=== PATIENT | male | born 1990 | race Caucasian/White ===

== ENCOUNTER 2021-06-20 09:51 | Inpatient (IN) | payer OTHER, SELFPAY ==
--- NOTE | ~2021-06-20 | XR_ITS ---
EXAMINATION: XR CHEST CLINICAL INFORMATION: Hypoxia, shortness of breath COMPARISON: None TECHNIQUE: Frontal view of the chest was obtained. FINDINGS: Normal cardiac and mediastinal silhouette. Multifocal airspace opacities in bilateral mid and lower lungs. This could reflect infectious or inflammatory process. Question trace left pleural effusion. No pulmonary edema or pneumothorax.. XR/XR chest 1V IMPRESSION: Multifocal airspace opacities in bilateral mid to lower lungs, could reflect infectious or inflammatory process. Recommendation is for a follow-up chest series to be obtained following treatment and/or resolution of symptoms to assure resolution of this appearance.
[2021-06-20 10:00] VITALS: BP 125/84; PULSE 109; RESP 20; TEMP 38.2; O2SAT 90; BMI 30.9
--- NOTE | 2021-06-20 10:09 | ECG_ITS ---
Test Reason : UPPER RESPIRATORY Blood Pressure : / mmHG Vent. Rate : 120 BPM Atrial Rate : 120 BPM P-R Int : 154 ms QRS Dur : 114 ms QT Int : 304 ms P-R-T Axes : 050 039 019 degrees QTc Int : 429 ms Sinus tachycardia Nonspecific T wave abnormality Abnormal ECG No previous ECGs available Referred By: Meghan Stern Electronically Signed By:AURA FLORES
--- NOTE | 2021-06-20 10:13 | ED.URI ---
HPI - URI/Sore Throat General Chief Complaint: Upper Respiratory Symptoms Stated Complaint: LOW O2 Time Seen by Provider: 06/20/21 09:54 Source: patient and family Mode of arrival: ambulatory Limitations: no limitations History of Present Illness HPI Narrative: 31-year-old male with a past medical history of asthma, developmental delay here with complaints of hypoxia. Patient has had viral symptoms since Sunday. Family at home is COVID positive. He had a COVID test on Monday 06/18 which was positive. Mom has been watching his oxygen saturations at home and has noticed his oxygen has been 89-90% today. She trialed his albuterol nebulizer at home with continued hypoxia. The patient has had cough, chest discomfort, body aches, fever up to 101. No history of hospitalizations for asthma. No intubation history No leg swelling or pain. No vomiting or diarrhea. Related Data Home Medications Medication Instructions Recorded Confirmed albuterol sulfate 1 vial INHALATION Q6H PRN 06/20/21 06/20/21 loratadine 10 mg tablet (Claritin) 10 mg PO DAILY 06/20/21 06/20/21 montelukast 10 mg tablet 10 mg PO BEDTIME 06/20/21 06/20/21 (Singulair) triamcinolone acetonide 55 mcg 2 spray INTRANASAL DAILY 06/20/21 06/20/21 nasal spray aerosol (Nasacort) Allergies Allergy/AdvReac Type Severity Reaction Status Date / Time carrot Allergy Mild unknown Verified 06/20/21 10:38 codeine Allergy Mild cough Verified 06/20/21 10:38 corn Allergy Mild unknown Verified 06/20/21 10:38 peanut Allergy Mild unknown Verified 06/20/21 10:38 peas Allergy Mild unknown Verified 06/20/21 10:38 tuna oil Allergy Mild unknown Verified 06/20/21 10:38 Review of Systems Review of Systems: Yes all other systems are reviewed and are negative Constitutional: Constitutional: Reports no additional constitutional complaints, Reports body ache(s), Denies chills, Reports fever(s), Denies headache(s) and Denies weakness Eyes: Eyes: Reports no additional eye complaints and Denies change in vision ENT: Reports system reviewed and no additional complaints, except as documented, Denies dizziness, Denies headache(s), Denies nasal congestion, Denies nasal discharge and Denies neck pain Cardiovascular: Cardiovascular: Reports no additional cardiovascular complaints, Reports chest pain (Chest tightness), Denies leg edema and Denies dyspnea Respiratory: Respiratory: Reports no additional respiratory complaints, Reports cough, Denies dyspnea and Reports wheezing Gastrointestinal: Gastrointestinal: Reports no additional gastrointestinal complaints, Denies abdominal pain, Denies diarrhea, Denies nausea and Denies vomiting Genitourinary: Genitourinary: Denies urinary incontinence Musculoskeletal: Musculoskeletal: Reports no additional musculoskeletal complaints, Denies back pain, Denies arthralgias, Denies joint swelling, Denies neck pain, Denies numbness and Denies tingling Integumentary/Breasts: Skin/Breast: Reports system reviewed and no additional complaints, except as docu and Denies rash Neurologic: Denies Abnormal speech present, Denies dizziness, Denies headache(s), Denies numbness, Denies tingling and Denies weakness Allergic/Immunologic: Allergic/Immunologic: Reports wheezing PMFSH Past Medical History Attestation statement: The following information was validated with the patient. Source: old records reviewed and nursing notes reviewed Medical History Asthma Developmental delay, mild Social History Social History Alcohol intake: never Patient Tobacco Use Status: Never used Tobacco Use of substances other than those prescribed or required for medical reasons: No Advance Directives: No Advance Directives Information Provided: No Physical Exam Vital Signs: Vital Signs: Last Vital Signs Temp 100.8 F H 06/20/21 10:00 Pulse 138 H 06/20/21 12:00 Resp 28 H 06/20/21 12:00 BP 125/84 06/20/21 10:00 Pulse Ox 89 L 06/20/21 12:00 Body Mass Index 30.9 Const: General: cooperative, healthy appearing, comfortable and no acute distress Orientation/consciousness: patient oriented x3 Limitations: no limitations HENMT: Head: Yes normal to inspection Ears: hearing grossly normal bilaterally General nose exam: Normal external nose present Face and sinus: Yes normal facial exam Mouth: Normal oral and palatal mucosa present Throat: Yes posterior oropharynx normal Eyes: General: appearance normal, both eyes and all related structures Pupils: Equal, round and reactive pupils present Neck: Neck: Yes normal visual inspection Chest: Chest palpation & inspection: normal inspection of the chest Resp: Effort & Inspection: normal respiratory effort Auscultation: clear to auscultation bilaterally Cardio: Rate: regular rate Rhythm: regular rhythm Peripheral pulses: Peripheral pulses 2+ throughout GI: Inspection: Yes normal to inspection Palpation (GI): Soft to palpation and nontender Auscultation: normal bowel sounds Back/Spine/Pelvis: Thoracic/Lumbar Spine: thoracic and lumbar spine normal to inspection Skin: General skin exam: no rashes or lesions noted Neuro: General: patient oriented x3, no focal motor deficits and normal sensation to monofilament Cranial nerves: Yes Equal, round and reactive pupils present Cognition (Neuro): normal cognition Speech: No Abnormal speech present Gait exam (Neuro): Normal gait present Motor exam (neuro): 5/5 motor strength present throughout Extrem: General: Yes normal to inspection, Yes no pedal edema and Yes no calf tenderness Course Course Course Narrative: 31-year-old male COVID positive here with hypoxia. Room air saturation 89%. Will need labs, chest x-ray, EKG.. Tachycardia, hypoxia secondary to viral infection. -Called and spoke to gavi Lerma who is guardian. 1242-x-ray is consistent with viral pneumonia. Patient sat on the side of the bed and his oxygen saturation desatted to 89% without any movement or exertion. Will require admission for supplemental oxygen. Mom was called and updated on plan of care. At this time infection is suspected. Antibiotics ordered. Spoke with Dr Sheridan who accepted admissionj. MDM - URI/Sore Throat MDM Narrative Medical decision making narrative: Pulmonary embolism, viral infection Medical Records Attestation: I reviewed the patient's medical records. Lab Data Attestation: I reviewed the patient's lab results. Result diagrams: 06/20/21 10:28 06/20/21 10:27 Labs: Lab Results 06/20/21 06/20/21 06/20/21 Range/Units 10:27 10:27 10:27 WBC (4.8-10.8) X10*3/uL RBC (4.60-5.80) X10*6/uL Hgb (14.0-18.0) g/dl Hct (42-52) % MCV (80-98) fL MCH (27.0-33.0) pg MCHC (31.0-36.0) g/dl RDW (11.0-16.0) % Plt Count (160-400) X10*3/uL MPV (9.4-12.4) fL Immature Gran % (Auto) (0.0-0.4) % Neut % (Auto) (45-73) % Lymph % (Auto) (20-40) % Garfield % (Auto) (2-11) % Eos % (Auto) (0-4) % Baso % (Auto) (0-2) % Lymph # (Auto) (1.2-4.9) X10*3/uL [place]field # (Auto) (0.1-1.2) X10*3/uL Eos # (Auto) (0.0-0.4) X10*3/uL Baso # (Auto) (0.0-0.2) X10*3/uL Abs Immat Gran (auto) (0.00-0.03) X10*3/uL Absolute Neuts (auto) (2.0-8.3) X10*3/uL Absolute Nucleated RBC (0.0-0.012) X10*3/uL Nucleated RBC % (auto) (0.0-0.2) /100WBC PT 13.6 H (9.9-13.0) SEC INR 1.2 H (0.9-1.1) D-Dimer NG/ML Sodium 139 (135-145) mmol/L Potassium 4.5 (3.3-5.1) mmol/L Chloride 103 (96-108) mmol/L Carbon Dioxide 25 (22-29) mmol/L Anion Gap 16 (12-20) BUN 14 (9-16) mg/dL Creatinine 0.83 (0.5-1.4) mg/dL Estim Creat Clear Calc 146.6 Estimated GFR > 60 Random Glucose 88 (60-115) mg/dL Lactic Acid 1.0 (0.5-2.0) mmol/L Calcium 8.3 L (8.4-10.2) mg/dL Magnesium 2.1 (1.6-2.6) mg/dL Ferritin 592 H (20-250) ng/mL Total Bilirubin 0.4 (0.0-1.0) mg/dL Direct Bilirubin 0.2 (0.0-0.5) mg/dL AST 56 H (5-37) U/L ALT 78 H (0-40) U/L Alkaline Phosphatase 71 (39-117) U/L Lactate Dehydrogenase 292 H (118-273) U/L C-Reactive Protein 0.81 H (< or = 0.50) mg/dL Total Protein 6.2 L (6.5-8.0) g/dL Albumin 3.9 (3.5-5.0) g/dL Procalcitonin ng/mL COVID-19 (LORENZA) (Negative) COVID-19 Clin Com 06/20/21 06/20/21 06/20/21 Range/Units 10:27 10:27 10:27 WBC (4.8-10.8) X10*3/uL RBC (4.60-5.80) X10*6/uL Hgb (14.0-18.0) g/dl Hct (42-52) % MCV (80-98) fL MCH (27.0-33.0) pg MCHC (31.0-36.0) g/dl RDW (11.0-16.0) % Plt Count (160-400) X10*3/uL MPV (9.4-12.4) fL Immature Gran % (Auto) (0.0-0.4) % Neut % (Auto) (45-73) % Lymph % (Auto) (20-40) % Garfield % (Auto) (2-11) % Eos % (Auto) (0-4) % Baso % (Auto) (0-2) % Lymph # (Auto) (1.2-4.9) X10*3/uL [place]field # (Auto) (0.1-1.2) X10*3/uL Eos # (Auto) (0.0-0.4) X10*3/uL Baso # (Auto) (0.0-0.2) X10*3/uL Abs Immat Gran (auto) (0.00-0.03) X10*3/uL Absolute Neuts (auto) (2.0-8.3) X10*3/uL Absolute Nucleated RBC (0.0-0.012) X10*3/uL Nucleated RBC % (auto) (0.0-0.2) /100WBC PT (9.9-13.0) SEC INR (0.9-1.1) D-Dimer < 200 NG/ML Sodium (135-145) mmol/L Potassium (3.3-5.1) mmol/L Chloride (96-108) mmol/L Carbon Dioxide (22-29) mmol/L Anion Gap (12-20) BUN (9-16) mg/dL Creatinine (0.5-1.4) mg/dL Estim Creat Clear Calc Estimated GFR Random Glucose (60-115) mg/dL Lactic Acid (0.5-2.0) mmol/L Calcium (8.4-10.2) mg/dL Magnesium (1.6-2.6) mg/dL Ferritin Cancelled (20-250) ng/mL Total Bilirubin (0.0-1.0) mg/dL Direct Bilirubin (0.0-0.5) mg/dL AST (5-37) U/L ALT (0-40) U/L Alkaline Phosphatase (39-117) U/L Lactate Dehydrogenase Cancelled (118-273) U/L C-Reactive Protein (< or = 0.50) mg/dL Total Protein (6.5-8.0) g/dL Albumin (3.5-5.0) g/dL Procalcitonin 0.06 ng/mL COVID-19 (LORENZA) (Negative) COVID-19 Clin Com 06/20/21 06/20/21 Range/Units 10:28 13:54 WBC 5.7 (4.8-10.8) X10*3/uL RBC 5.26 (4.60-5.80) X10*6/uL Hgb 14.9 (14.0-18.0) g/dl Hct 45.4 (42-52) % MCV 86.3 (80-98) fL MCH 28.3 (27.0-33.0) pg MCHC 32.8 (31.0-36.0) g/dl RDW 12.2 (11.0-16.0) % Plt Count 163 (160-400) X10*3/uL MPV 9.7 (9.4-12.4) fL Immature Gran % (Auto) 0.5 H (0.0-0.4) % Neut % (Auto) 64.9 (45-73) % Lymph % (Auto) 23.7 (20-40) % Garfield % (Auto) 10.7 (2-11) % Eos % (Auto) 0.0 (0-4) % Baso % (Auto) 0.2 (0-2) % Lymph # (Auto) 1.4 (1.2-4.9) X10*3/uL Garfield # (Auto) 0.6 (0.1-1.2) X10*3/uL Eos # (Auto) 0.0 (0.0-0.4) X10*3/uL Baso # (Auto) 0.0 (0.0-0.2) X10*3/uL Abs Immat Gran (auto) 0.03 (0.00-0.03) X10*3/uL Absolute Neuts (auto) 3.7 (2.0-8.3) X10*3/uL Absolute Nucleated RBC 0.000 (0.0-0.012) X10*3/uL Nucleated RBC % (auto) 0.0 (0.0-0.2) /100WBC PT (9.9-13.0) SEC INR (0.9-1.1) D-Dimer NG/ML Sodium (135-145) mmol/L Potassium (3.3-5.1) mmol/L Chloride (96-108) mmol/L Carbon Dioxide (22-29) mmol/L Anion Gap (12-20) BUN (9-16) mg/dL Creatinine (0.5-1.4) mg/dL Estim Creat Clear Calc Estimated GFR Random Glucose (60-115) mg/dL Lactic Acid (0.5-2.0) mmol/L Calcium (8.4-10.2) mg/dL Magnesium (1.6-2.6) mg/dL Ferritin (20-250) ng/mL Total Bilirubin (0.0-1.0) mg/dL Direct Bilirubin (0.0-0.5) mg/dL AST (5-37) U/L ALT (0-40) U/L Alkaline Phosphatase (39-117) U/L Lactate Dehydrogenase (118-273) U/L C-Reactive Protein (< or = 0.50) mg/dL Total Protein (6.5-8.0) g/dL Albumin (3.5-5.0) g/dL Procalcitonin ng/mL COVID-19 (LORENZA) Positive A (Negative) COVID-19 Clin Com See Note ECG Data Attestation: I personally reviewed and interpreted this ECG as follows: ECG interpretation date: 06/20/21 ECG interpretation time: 10:48 Interpretation: Sinus tachycardia with a rate of 120, normal ME, normal QRS, normal QT Discharge Plan Discharge Clinical Impression: COVID-19, Hypoxia Patient Disposition: Admitted As Inpatient
[2021-06-20 10:21] VITALS: PULSE 120; O2SAT 92
[2021-06-20] MEDS: Albuterol/Iprat 2.5/0.5MG 3 ML AMPUL.NEB INHALE (10:21)
[2021-06-20 10:37] LABS: MANUAL DIFF FLAG NO
[2021-06-20 10:39] LABS: Basophils Percent Auto 0.2 % (0-2); Hematocrit 45.4 % (42-52); Hemoglobin 14.9 g/dl (14.0-18.0); Imm Gran Abs Auto 0.03 X10*3/uL (0.00-0.03); Imm Gran Pct Auto 0.5 % (0.0-0.4); Lymphocytes Absolute Auto 1.4 X10*3/uL (1.2-4.9); Lymphocytes Percent Auto 23.7 % (20-40); Mean Corpuscular HGB Conc 32.8 g/dl (31.0-36.0); Mean Corpuscular Hemoglobin 28.3 pg (27.0-33.0); Mean Corpuscular Volume 86.3 fL (80-98); Mean Platelet Volume 9.7 fL (9.4-12.4); Monocytes Absolute Auto 0.6 X10*3/uL (0.1-1.2); Monocytes Percent Auto 10.7 % (2-11); Neutrophils Absolute Auto 3.7 X10*3/uL (2.0-8.3); Neutrophils Percent Auto 64.9 % (45-73); Platelet Count 163 X10*3/uL (160-400); Red Blood Count 5.26 X10*6/uL (4.60-5.80); Red Cell Distribution Width 12.2 % (11.0-16.0); White Blood Count 5.7 X10*3/uL (4.8-10.8)
[2021-06-20] MEDS: dexAMETHasone sod phosphate 4 MG/ML VIAL 6 MG IVPUSH (10:43)
[2021-06-20] MEDS: 0.9 % Sodium Chloride 1,000 ML 999 ML IV ×2 (10:44→13:15)
[2021-06-20] MEDS: Magnesium Sulfate/H2O 2 GM/50 ML PIGGYBACK IV (10:44)
[2021-06-20 10:49] LABS: INTERNATIONAL NORM RATIO 1.2 (0.9-1.1); Prothrombin Time 13.6 SEC (9.9-13.0)
[2021-06-20 11:01] VITALS: O2SAT 96
[2021-06-20 11:05] LABS: Alanine Aminotransferase 78 U/L (0-40); Albumin Level 3.9 g/dL (3.5-5.0); Alkaline Phosphatase 71 U/L (39-117); Anion Gap 16 (12-20); Aspartate Amino Transferase 56 U/L (5-37); Bilirubin Direct 0.2 mg/dL (0.0-0.5); Bilirubin Total 0.4 mg/dL (0.0-1.0); Blood Urea Nitrogen 14 mg/dL (9-16); C Reactive Protein 0.81 mg/dL (< or = 0.50); Calcium 8.3 mg/dL (8.4-10.2); Carbon Dioxide 25 mmol/L (22-29); Chloride 103 mmol/L (96-108); Creatinine Clr Calc Pharmacy 146.6; Estimated Glomerular Filt Rate > 60; Glucose Random 88 mg/dL (60-115); Magnesium 2.1 mg/dL (1.6-2.6); Potassium 4.5 mmol/L (3.3-5.1); Sodium 139 mmol/L (135-145); Total Protein 6.2 g/dL (6.5-8.0)
[2021-06-20 11:08] LABS: D Dimer < 200 NG/ML
[2021-06-20 11:27] LABS: Ferritin 592 ng/mL (20-250); Lactate Dehydrogenase 292 U/L (118-273)
[2021-06-20 11:43] LABS: Procalcitonin 0.06 ng/mL
[2021-06-20 12:00] VITALS: PULSE 138; RESP 28; O2SAT 89
--- NOTE | 2021-06-20 12:01 | PC.NURSE ---
unable to tolerate ambulation w/o supp o2, desat to 89% on ra. placed back on nc in stretcher. plan for inpt admission.
--- NOTE | 2021-06-20 12:29 | PHA.MEDREC ---
Pharmacy Consult ? Medication Reconciliation Pharmacy has completed the medication reconciliation. Teetee HuynhD
[2021-06-20] MEDS: Piperacillin Sodium/Tazobactam 4.5 GM in 0.9 % Sodium Chloride 100 ML IV (13:15)
[2021-06-20 14:08] LABS: COVID-19 Test Positive (Negative)
--- NOTE | 2021-06-20 14:38 | P.HPHOSP_ITS ---
History of Present Illness Date of Service: 06/20/21 Chief Complaint: shortness of breath 31-year-old male with a developmental delay, history of asthma, who presents to the emergency room with a shortness of breath. He tested positive for covid on June 18 along with multiple family memebers and has been having symptoms of URI and sob since Jun 14 and seem to have gotten worse today and hence brought to the ED. His noted to be hypoxic with O2 892 on room. LFTs are high, CRP 0.81 LDH 292 and covid positive. Oxygen saturation is better with O2. ED:given brething treatment and IV dexamethasone. CXR shows covid pattern pneumonia. Review of Systems Review of Systems: Gen: no fever Resp: + sob, no cough CV: no chest, no RANDOLPH, no leg edema GI: No n/v, no abd pain Neuro: No confusion Yes all other systems are reviewed and are negative PMFSH Medical History Asthma Developmental delay, mild Social History Alcohol intake: never Patient Tobacco Use Status: Never used Tobacco Use of substances other than those prescribed or required for medical reasons: No Advance Directives: No Advance Directives Information Provided: No Meds Allergies Allergy/AdvReac Type Severity Reaction Status Date / Time carrot Allergy Mild unknown Verified 06/20/21 10:38 codeine Allergy Mild cough Verified 06/20/21 10:38 corn Allergy Mild unknown Verified 06/20/21 10:38 peanut Allergy Mild unknown Verified 06/20/21 10:38 peas Allergy Mild unknown Verified 06/20/21 10:38 tuna oil Allergy Mild unknown Verified 06/20/21 10:38 Active Medications: Current Medications Generic Name Dose Route Start Last Admin Trade Name Freq PRN Reason Stop Dose Admin Acetaminophen 650 mg 06/20/21 14:35 Acetaminophen 325 Mg Tablet PO Q6H PRN Pain, Mild (Pain Scale 1-3) Melatonin 6 mg 06/20/21 14:35 Melatonin 3 Mg Tablet PO BEDTIME PRN Insomnia Pharmacy Consult 1 each 06/20/21 11:57 Consult Rx Perform Med Rec MISCELLANE ONCE PRN Consult order Sodium Chloride 3 ml 06/20/21 16:00 0.9 % Sodium Chloride Flush 3 Ml Syringe IV[facility]USH [facility] Home Medications Medication Instructions Recorded Confirmed Last Taken Type albuterol sulfate 1 vial INHALATION Q6H PRN 06/20/21 06/20/21 06/20/21 History loratadine 10 mg tablet (Claritin) 10 mg PO DAILY 06/20/21 06/20/21 06/19/21 History montelukast 10 mg tablet 10 mg PO BEDTIME 06/20/21 06/20/21 06/19/21 History (Singulair) triamcinolone acetonide 55 mcg 2 spray INTRANASAL DAILY 06/20/21 06/20/21 06/20/21 History nasal spray aerosol (Nasacort) Physical Exam Vital Signs and Narrative: Vital Signs: Last Vital Signs Temp 100.8 F H 06/20/21 10:00 Pulse 138 H 06/20/21 12:00 Resp 28 H 06/20/21 12:00 BP 125/84 06/20/21 10:00 Pulse Ox 89 L 06/20/21 12:00 Body Mass Index 30.9 Constitutional Awake and Alert, No apparent distress HEENT anicteria Neck Supple, No lymphadenopathy Cardiovascular RRR, No M/R/G, S1 S2, No S3 S4, No pedal edema Respiratory normal resp effor, speaks in full sentences, auscultation avoided d'/t active covid status. Gastrointestinal Non tender, Non-distended Skin No rash Neurological Alert & oriented x3 Psychological Appropriate affect Results Labs CBC and Chem 7: 06/20/21 10:28 06/20/21 10:27 Labs: Laboratory Results - last 24 hr 06/20/21 06/20/21 06/20/21 10:27 10:27 10:27 MCV MCH MCHC RDW Plt Count MPV Immature Gran % (Auto) Neut % (Auto) Lymph % (Auto) [place] % (Auto) Eos % (Auto) Baso % (Auto) Lymph # (Auto) [place] # (Auto) Eos # (Auto) Baso # (Auto) Abs Immat Gran (auto) Absolute Neuts (auto) Absolute Nucleated RBC Nucleated RBC % (auto) PT 13.6 H INR 1.2 H D-Dimer Anion Gap 16 Estim Creat Clear Calc 146.6 Estimated GFR > 60 Random Glucose 88 Lactic Acid 1.0 Calcium 8.3 L Magnesium 2.1 Ferritin 592 H Total Bilirubin 0.4 Direct Bilirubin 0.2 AST 56 H ALT 78 H Alkaline Phosphatase 71 Lactate Dehydrogenase 292 H C-Reactive Protein 0.81 H Total Protein 6.2 L Albumin 3.9 Procalcitonin COVID-19 (LORENZA) COVID-19 Code Rebel Com 06/20/21 06/20/21 06/20/21 10:27 10:27 10:27 MCV MCH MCHC RDW Plt Count MPV Immature Gran % (Auto) Neut % (Auto) Lymph % (Auto) [place] % (Auto) Eos % (Auto) Baso % (Auto) Lymph # (Auto) [place] # (Auto) Eos # (Auto) Baso # (Auto) Abs Immat Gran (auto) Absolute Neuts (auto) Absolute Nucleated RBC Nucleated RBC % (auto) PT INR D-Dimer < 200 Anion Gap Estim Creat Clear Calc Estimated GFR Random Glucose Lactic Acid Calcium Magnesium Ferritin Cancelled Total Bilirubin Direct Bilirubin AST ALT Alkaline Phosphatase Lactate Dehydrogenase Cancelled C-Reactive Protein Total Protein Albumin Procalcitonin 0.06 COVID-19 (LORENZA) COVID-19 Code Rebel Com 06/20/21 06/20/21 10:28 13:54 MCV 86.3 MCH 28.3 MCHC 32.8 RDW 12.2 Plt Count 163 MPV 9.7 Immature Gran % (Auto) 0.5 H Neut % (Auto) 64.9 Lymph % (Auto) 23.7 [place] % (Auto) 10.7 Eos % (Auto) 0.0 Baso % (Auto) 0.2 Lymph # (Auto) 1.4 [place] # (Auto) 0.6 Eos # (Auto) 0.0 Baso # (Auto) 0.0 Abs Immat Gran (auto) 0.03 Absolute Neuts (auto) 3.7 Absolute Nucleated RBC 0.000 Nucleated RBC % (auto) 0.0 PT INR D-Dimer Anion Gap Estim Creat Clear Calc Estimated GFR Random Glucose Lactic Acid Calcium Magnesium Ferritin Total Bilirubin Direct Bilirubin AST ALT Alkaline Phosphatase Lactate Dehydrogenase C-Reactive Protein Total Protein Albumin Procalcitonin COVID-19 (LORENZA) Positive A COVID-19 Clin Com See Note Imaging Radiologist's Impressions: Impressions Chest X-Ray 06/20/21 10:10 IMPRESSION: Multifocal airspace opacities in bilateral mid to lower lungs, could reflect infectious or inflammatory process. Recommendation is for a follow-up chest series to be obtained following treatment and/or resolution of symptoms to assure resolution of this appearance. Assessment and Plan (1) COVID-19: Status: Acute (2) Acute respiratory failure with hypoxia: Status: Acute 31 year male with asthma here with acute hypoxic respiratory failure due to viral pneumonia associated with covid-19, Transaminitis. Plan: Treat with IV steroid, Oxygen, Empiric Doxycyline, consider Pulmonology or ID consult if not improving. Lovenox for DVT prophylaxis Quality Stroke Does the patient have a stroke diagnosis?: No VTE Prior VTE?: No VTE Risk Level:: Medical - moderate - high VTE Device Contraindication: N/A - Device Ordered VTE Drug Contraindication: N/A - Med Ordered
[2021-06-20] MEDS: Enoxaparin Sodium 40 MG/0.4 ML SYRINGE SUBCUT (16:36)
[2021-06-20] MEDS: Doxycycline Hyclate 100 MG in 0.9 % Sodium Chloride 250 ML 166.67 MG IV (16:36)
--- NOTE | 2021-06-20 17:00 | PC.NURSE ---
ambulated to and from bathroom w steady gait.
--- NOTE | 2021-06-20 18:45 | PC.NURSE ---
pt aunt leaving for evening. pt aunt wanted all questions and concerns referred to pts mother, phone number is in chart. pt has cognitive impairment and is unable to make medical needs known . pt cooperative, minimally conversing w this rn during any evaluation. awaiting bed assignment.
[2021-06-20 20:43] VITALS: BP 104/66; PULSE 97; RESP 18; TEMP 36.7; O2SAT 94
[2021-06-20] MEDS: 0.9 % Sodium Chloride Flush 3 ML SYRINGE IVFLUSH (20:57)
[2021-06-20] MEDS: Montelukast Sodium 10 MG TABLET PO (20:57)
[2021-06-20 23:13] VITALS: BP 122/70; PULSE 82; RESP 20; TEMP 36.3; O2SAT 95
[2021-06-21] VITALS (7 sets, daily range): BP systolic 110–126; BP diastolic 59–74; PULSE 86–111; RESP 18–20; TEMP 36.7–38.4; O2SAT 91–95
[2021-06-21] MEDS: Doxycycline Hyclate 100 MG in 0.9 % Sodium Chloride 250 ML 166.67 MG IV ×2 (03:28→14:28)
--- NOTE | 2021-06-21 08:36 | P.CDIC_ITS ---
CDI Concurrent Query Service Date: 06/21/21 Documentation Clarification: Please clarify if you are treating a proba ble/suspected/likely or confirmed: Please clarify which of the following most accurately describes the status of the patient?s infection ? Sepsis: o?? Systemic manifestations of infection, with 2 or more SIRS criteria which include: ?? Fever > 100.4?F or hypothermia < 96.8?F ?? Leukocytosis ? WBC > 12,000 or leukopenia, WBC < 4,000, or > 10% bands ?? Tachycardia - > 90 beats/minute ?? Tachypnea - RR > 20 breaths/minute or PaCO2 < 32mmHg Source: Merck Manual 2013 o?? Indicate the known or suspected organism o?? Indicate the known or suspected underlying infection, such as UTI,? pneumonia, or cellulitis o?? Indicate if a suspected bacterial infection of unknown source o?? Indicate if associated with an implanted device such as a F/C, PICC line, orthopedic hardware, etc. ? Severe Sepsis o?? Sepsis with associated acute organ dysfunction, such as renal or respiratory failure o?? Documentation should indicate the association between the sepsis and the organ dysfunction ? Septic Shock o?? Severe sepsis with associated with circulatory failure, evidenced by hypotension and hypoperfusion ? Localized infection only, without systemic illness - indicate the site/source, such as UTI, pneumonia, etc. ? Bacteremia (abnormal lab finding only, does not indicate systemic illness) ? Other ? Unable to determine Provider Response: Other Other Diagnosis: covid with SIRS, not septic PLEASE DO NOT DELETE/MODIFY EXISTING CONTENT Additional information is needed in order to code to the highest accuracy and a ppropriate Severity of Illness (SOI). Please clarify the information noted below in your progress notes and discharge summary. Risk Factors/Clinical Indicators/Treatments Admit with + COVID, Acute Hypoxic T 100.8, 138, 28, 125/84, 89% WBC 5.7 LA 1.0 PMH: Asthma CDS: Mikayla Phan RN Contact Number: [phone] Please Review the information above and exercise your independent professional judgment in responding to the query. If you concur, pleas document in the PROGRESS NOTES and DISCHARGE SUMMARY. If you do not agree with the query, please document in the query above. THIS QUERY IS PART OF THE PERMANENT MEDICAL RECORD
[2021-06-21] MEDS: 0.9 % Sodium Chloride Flush 3 ML SYRINGE IVFLUSH ×3 (09:13→20:57)
[2021-06-21] MEDS: Loratadine 10 MG TABLET PO (09:13)
--- NOTE | 2021-06-21 09:22 | MHC.CM.PN ---
IMM 06/21/21 Male 31 DX COVID+. He lives with family. He is assisted w ADLs by his Mother. He ambulates independently. DP is home with family support and assistance. Family will provide transportation. HCP+ copy requested. The Patient has mild cognitive impairment. Information has been obtained from the pts mother at his request. Emotional support and encouragement provided to the patient. CM will follow.
[2021-06-21] MEDS: Fluticasone Propionate Nasal 16 GM SPRAY 2 SPRAY NOSTRIL-B (11:52)
[2021-06-21 14:16] LABS: Alanine Aminotransferase 63 U/L (0-40); Albumin Level 3.6 g/dL (3.5-5.0); Alkaline Phosphatase 64 U/L (39-117); Aspartate Amino Transferase 45 U/L (5-37); Bilirubin Direct 0.2 mg/dL (0.0-0.5); Bilirubin Total 0.4 mg/dL (0.0-1.0); Total Protein 5.6 g/dL (6.5-8.0)
[2021-06-21] MEDS: Enoxaparin Sodium 40 MG/0.4 ML SYRINGE SUBCUT (14:27)
--- NOTE | 2021-06-21 15:26 | W.PM.IDCN ---
History of Present Illness Data of Consult Service Date: 06/21/21 Requesting physician: Miguel Angel Solis Primary Care Provider: MD KARO Montenegro Reason for consult: shortness of breath He presents to hospital with shortness of breath for six days He has positive COVID test. He has oxygen demand 4 liters Review of Systems Review of Systems: Yes all other systems are reviewed and are negative PMFSH Past Medical History Medical History (Updated 07/04/21 @ 00:01 by Gabriel Maria) Asthma Developmental delay, mild Social History Social History Household Members: Family Housing: House Alcohol intake: never Patient Tobacco Use Status: Never used Tobacco Use of substances other than those prescribed or required for medical reasons: No Currently Displaying Signs/Symptoms of Drug Intoxication Withdrawal: No Have you been hit, kicked, punched, or otherwise hurt by someone within the past year? If so, by whom?: No Do you feel safe in your current relationship?: No Current Relationship Is there a partner from a previous relationship who is making you feel unsafe now?: No Are you made to feel afraid or neglected: No Spiritual Healthcare Practices: NONE REPORTED Advance Directives: No Advance Directives Information Provided: No Do you have thoughts of harming others: None Do you have a plan to hurt others: No Plan Recently lost weight without trying: No Eating poorly because of decreased appetite: No Nutrition Risks: No Nutritional Risk Poor oral hygiene: No service: No Current occupational status: disabled Meds Allergies Allergy/AdvReac Type Severity Reaction Status Date / Time carrot Allergy Mild unknown Verified 06/20/21 10:38 codeine Allergy Mild cough Verified 06/20/21 10:38 corn Allergy Mild unknown Verified 06/20/21 10:38 peanut Allergy Mild unknown Verified 06/20/21 10:38 peas Allergy Mild unknown Verified 06/20/21 10:38 tuna oil Allergy Mild unknown Verified 06/20/21 10:38 Active Medications: Current Medications Generic Name Dose Route Start Last Admin Trade Name Freq PRN Reason Stop Dose Admin Acetaminophen 650 mg 06/20/21 14:35 Acetaminophen 325 Mg Tablet PO Q6H PRN Pain, Mild (Pain Scale 1-3) Albuterol Sulfate 2.5 mg 06/20/21 14:38 Albuterol Sulfate (0.083%) 2.5 Mg/3 Ml Vial.Neb INHALE Q6H PRN wheezing Enoxaparin Sodium 40 mg 06/20/21 15:00 06/21/21 14:27 Enoxaparin Sodium 40 Mg/0.4 Ml Syringe SUBCUT 40 mg Q24H NEL Administration Fluticasone Propionate 2 spray 06/21/21 09:00 06/21/21 11:52 Fluticasone Propionate Nasal 16 Gm [place] NOSTRIL-B 2 spray DAILY NEL Administration Doxycycline Hyclate 100 mg/ 250 mls @ 166.67 mls/hr 06/20/21 15:00 06/21/21 14:28 Sodium Chloride IV 166.67 mls/hr Q12H NEL Administration Loratadine 10 mg 06/21/21 09:00 06/21/21 09:13 Loratadine 10 Mg Tablet PO 10 mg DAILY NEL Administration Melatonin 6 mg 06/20/21 14:35 Melatonin 3 Mg Tablet PO BEDTIME PRN Insomnia Montelukast Sodium 10 mg 06/20/21 21:00 06/20/21 20:57 Montelukast Sodium 10 Mg Tablet PO 10 mg BEDTIME NEL Administration Pharmacy Consult 1 each 06/20/21 11:57 Consult Rx Perform Med Rec MISCELLANE ONCE PRN Consult order Sodium Chloride 3 ml 06/20/21 16:00 06/21/21 14:29 0.9 % Sodium Chloride Flush 3 Ml Syringe IVFLUSH 3 ml QSHIFT NEL Administration Home Medications Medication Instructions Recorded Confirmed Last Taken Type albuterol sulfate 1 vial INHALATION Q6H PRN 06/20/21 06/20/21 06/20/21 History loratadine 10 mg tablet (Claritin) 10 mg PO DAILY 06/20/21 06/20/21 06/19/21 History montelukast 10 mg tablet 10 mg PO BEDTIME 06/20/21 06/20/21 06/19/21 History (Singulair) triamcinolone acetonide 55 mcg 2 spray INTRANASAL DAILY 06/20/21 06/20/21 06/20/21 History nasal spray aerosol (Nasacort) Physical Exam Vital Signs: Vital Signs: Last Vital Signs Temp 101.1 F H 06/21/21 15:20 Pulse 105 H 06/21/21 15:20 Resp 20 08/31/21 15:20 BP 121/68 06/21/21 15:20 Pulse Ox 92 06/21/21 15:20 Body Mass Index 30.9 Const: General: cooperative HENMT: Head: Yes normal to inspection Mouth: Normal oral and palatal mucosa present Eyes: General: appearance normal, both eyes and all related structures Resp: Effort & Inspection: abnormal respiratory pattern and Actively coughing Cardio: Rate: regular rate Rhythm: regular rhythm GI: Palpation (GI): nontender Extrem: General: Yes normal to inspection Results Labs CBC & Chem 7: 06/24/21 08:15 06/24/21 08:15 Labs: Liver Function 06/21/21 Range/Units 13:46 Total Bilirubin 0.4 (0.0-1.0) mg/dL Direct Bilirubin 0.2 (0.0-0.5) mg/dL AST 45 H (5-37) U/L ALT 63 H (0-40) U/L Alkaline Phosphatase 64 (39-117) U/L Albumin 3.6 (3.5-5.0) g/dL Microbiology Microbiology Results: Microbiology 06/20/21 10:27 Blood - Venous Blood Culture - Preliminary No growth after 24 hours. 06/20/21 10:32 Blood - Venous Blood Culture - Preliminary No growth after 24 hours. Assessment and Plan (1) Acute respiratory failure with hypoxia: Status: Resolved He has respiratory insufficiency He has COVID He has slightly elevated LFTs due to COVID that are improving He has unremarkable creatinine (2) COVID-19: Status: Acute Remdesivir 5 days per protocol Would continue oxygen as needed Dexamethasone for six days
--- NOTE | 2021-06-21 16:49 | P.PNIM_ITS ---
Subjective Subjective Date of Service: 06/21/21 Interval History: f/u covid with hypoxia, better, still on O2 Review of Systems +fever +sob, cough Physical Exam Vital Signs: Vital Signs: Last Vital Signs Temp 101.1 F H 06/21/21 15:20 Pulse 105 H 06/21/21 15:20 Resp 20 06/21/21 15:20 BP 121/68 06/21/21 15:20 Pulse Ox 92 06/21/21 15:20 Body Mass Index 30.9 General: AO X 3, no acute distress Resp: normal lung expansion, speak in full sentences CVS: rrr GI: NT Skin: No rash Neuro: motor grossly intact Psych: appropriate affect Objective Data Current Medications Generic Name Dose Route Start Last Admin Trade Name Freq PRN Reason Stop Dose Admin Acetaminophen 650 mg 06/20/21 14:35 Acetaminophen 325 Mg Tablet PO Q6H PRN Pain, Mild (Pain Scale 1-3) Albuterol Sulfate 2.5 mg 06/20/21 14:38 Albuterol Sulfate (0.083%) 2.5 Mg/3 Ml Vial.Neb INHALE Q6H PRN wheezing Enoxaparin Sodium 40 mg 06/20/21 15:00 06/21/21 14:27 Enoxaparin Sodium 40 Mg/0.4 Ml Syringe SUBCUT 40 mg Q24H NEL Administration Fluticasone Propionate 2 spray 06/21/21 09:00 06/21/21 11:52 Fluticasone Propionate Nasal 16 [address]m [place] NOSTRIL-B 2 spray DAILY NEL Administration Doxycycline Hyclate 100 mg/ 250 mls @ 166.67 mls/hr 06/20/21 15:00 06/21/21 16:19 Sodium Chloride IV Infused Q12H NEL Infusion Loratadine 10 mg 06/21/21 09:00 06/21/21 09:13 Loratadine 10 Mg Tablet PO 10 mg DAILY NEL Administration Melatonin 6 mg 06/20/21 14:35 Melatonin 3 Mg Tablet PO BEDTIME PRN Insomnia Montelukast Sodium 10 mg 06/20/21 21:00 06/20/21 20:57 Montelukast Sodium 10 Mg Tablet PO 10 mg BEDTIME NEL Administration Pharmacy Consult 1 each 06/20/21 11:57 Consult Rx Perform Med Rec MISCELLANE ONCE PRN Consult order Sodium Chloride 3 ml 06/20/21 16:00 06/21/21 14:29 0.9 % Sodium Chloride Flush 3 Ml Syringe IVFLUSH 3 ml QSHIFT NEL Administration Labs CBC & Chem 7: 06/20/21 10:28 06/20/21 10:27 Labs: Laboratory Results - last 24 hr 06/21/21 13:46 Total Bilirubin 0.4 Direct Bilirubin 0.2 AST 45 H ALT 63 H Alkaline Phosphatase 64 Total Protein 5.6 L Albumin 3.6 Microbiology Microbiology Results: Microbiology 06/20/21 10:27 Blood Culture - Preliminary Blood - Venous No growth after 24 hours. 06/20/21 10:32 Blood Culture - Preliminary Blood - Venous No growth after 24 hours. Assessment and Plan (1) Acute respiratory failure with hypoxia: Status: Acute (2) Hypoxia: Status: Acute (3) Asthma: Status: Acute Assessment and Plan: 31 year male with asthma here with acute hypoxic respiratory failure due to viral pneumonia associated with covid-19, Transaminitis--LFTs trending down, still on O2, fever Plan: Continue Dexamethasone, Empiric Doxy, O2 goal of O2> 91, cough meds, t yelenol for fever, ID recommend Remdesevir D1. Lovenox for DVT prophylaxis. Albuterol for asthma Quality Stroke Does the patient have a stroke diagnosis?: No VTE Prior VTE?: No VTE Risk Level:: Medical - moderate - high VTE Device Contraindication: N/A - Device Ordered VTE Drug Contraindication: N/A - Med Ordered
[2021-06-21] MEDS: dexAMETHasone sod phosphate 4 MG/ML VIAL 6 MG IVPUSH (17:39)
[2021-06-21] MEDS: Montelukast Sodium 10 MG TABLET PO (20:57)
[2021-06-21] MEDS: Remdesivir 200 MG in 0.9 % Sodium Chloride 210 ML 105 MG IV (20:57)
[2021-06-21] MEDS: Acetaminophen 325 MG TABLET 650 MG PO (22:24)
--- NOTE | 2021-06-21 22:43 | PC.NURSE ---
Pt consistanly saying 88-90% since start of this Rns shift, md note says tirate 02 to goal of 91%, oxygen titrated but pt still bot meeting goal pt currently on 10 nasal cannula. pt had chills but no fever PRN tylenol given. pts mother called and stated when pt was younger he had required bipap in the past for retaining CO2 md updated. okay with goal of 88-90% advised to watch pt for any distress or mental status changes. pt resting in bed at this time. offer no complaints. will cont to monitor
[2021-06-22] MEDS: Doxycycline Hyclate 100 MG in 0.9 % Sodium Chloride 250 ML 166.67 MG IV ×2 (02:58→15:52)
[2021-06-22 03:48] VITALS: BP 110/77; PULSE 52; RESP 20; TEMP 35.8; O2SAT 93
[2021-06-22 08:00] VITALS: BP 123/73; PULSE 79; RESP 23; TEMP 36.2; O2SAT 90
[2021-06-22] MEDS: Fluticasone Propionate Nasal 16 GM SPRAY 2 SPRAY NOSTRIL-B (08:41)
[2021-06-22] MEDS: Loratadine 10 MG TABLET PO (08:41)
[2021-06-22] MEDS: dexAMETHasone sod phosphate 4 MG/ML VIAL 6 MG IVPUSH (08:41)
[2021-06-22] MEDS: 0.9 % Sodium Chloride Flush 3 ML SYRINGE IVFLUSH ×2 (08:41→16:01)
[2021-06-22 08:48] LABS: Hematocrit 44.8 % (42-52); Hemoglobin 14.8 g/dl (14.0-18.0); Mean Corpuscular Hemoglobin 28.7 pg (27.0-33.0); Mean Corpuscular Volume 86.8 fL (80-98); Mean Platelet Volume 9.7 fL (9.4-12.4); Platelet Count 199 X10*3/uL (160-400); Red Blood Count 5.16 X10*6/uL (4.60-5.80); Red Cell Distribution Width 12.3 % (11.0-16.0)
[2021-06-22 08:58] LABS: D Dimer < 200 NG/ML
[2021-06-22 08:58] LABS: Alanine Aminotransferase 67 U/L (0-40); Albumin Level 3.7 g/dL (3.5-5.0); Alkaline Phosphatase 66 U/L (39-117); Aspartate Amino Transferase 45 U/L (5-37); Bilirubin Direct 0.3 mg/dL (0.0-0.5); Bilirubin Total 0.6 mg/dL (0.0-1.0); C Reactive Protein 1.82 mg/dL (< or = 0.50)
[2021-06-22 12:00] VITALS: BP 124/81; PULSE 110; RESP 22; TEMP 37.3; O2SAT 88
--- NOTE | 2021-06-22 12:57 | PC.NURSE ---
notified dr Solis of patient's increasing demand for 02. This morning I decreased the o2 from 10L to 9L. o2 sats then decreased to around 89%. Increased back to 10LNC with very little improvement. At this time it is 12Lhigh flow and o2 sats are 90-91%. Patient was assisted back to bed (sat up in chair for an hour for lunch). Patient also diaphoretic and afebrile. Dr Solis aware of of patients condition at this time. Instructed nursing to watch patient closely for potential of needing higher level of care.
--- NOTE | 2021-06-22 12:59 | MHC.CM.PN ---
Male 31 DX Covid. Patient's demand for Oxygen has increased. DP home with family assist and transport. CM will follow.
[2021-06-22] MEDS: guaiFENesin 100 MG/5 ML LIQUID PO (13:13)
--- NOTE | 2021-06-22 13:57 | P.PNIM_ITS ---
Subjective Subjective Date of Service: 06/22/21 Interval History: f/u covid with hypoxia, worse oxygenation and more hypOxic than usual Review of Systems +sob +cough +no fever Physical Exam Vital Signs: Vital Signs: Last Vital Signs Temp 99.1 F 06/22/21 12:00 Pulse 110 H 06/22/21 12:00 Resp 22 H 06/22/21 12:00 BP 124/81 06/22/21 12:00 Pulse Ox 88 L 06/22/21 12:00 Body Mass Index 30.9 General: AO X 3, no acute distress Resp: normal brething pattern, talking in full sentences, no accessory muslce use CVS:RRR GI: +BS, NT, no distention Skin: No rash Neuro: motor grossly intact Psych: appropriate affect Objective Data Current Medications Generic Name Dose Route Start Last Admin Trade Name Freq PRN Reason Stop Dose Admin Acetaminophen 650 mg 06/20/21 14:35 06/21/21 22:24 Acetaminophen 325 Mg Tablet PO 650 mg Q6H PRN Administration Pain, Mild (Pain Scale 1-3) Albuterol Sulfate 2.5 mg 06/20/21 14:38 Albuterol Sulfate (0.083%) 2.5 Mg/3 Ml Vial.Neb INHALE Q6H PRN wheezing Dexamethasone Sodium Phosphate 6 mg 06/21/21 16:55 06/22/21 08:41 Dexamethasone Sod Phosphate 4 Mg/Ml Vial IVPUSH 6 mg DAILY NEL Administration Enoxaparin Sodium 40 mg 06/20/21 15:00 06/21/21 14:27 Enoxaparin Sodium 40 Mg/0.4 Ml Syringe SUBCUT 40 mg Q24H NEL Administration Fluticasone Propionate 2 spray 06/21/21 09:00 06/22/21 08:41 Fluticasone Propionate Nasal 16 Gm [place] NOSTRIL-B 2 spray DAILY NEL Administration Guaifenesin 5 ml 06/22/21 12:32 06/22/21 13:13 Guaifenesin 100 Mg/5 Ml Liquid PO 5 ml Q6H PRN Administration Cough Doxycycline Hyclate 100 mg/ 250 mls @ 166.67 mls/hr 06/20/21 15:00 06/22/21 04:36 Sodium Chloride IV Infused Q12H NEL Infusion Remdesivir 100 mg/ Sodium 230 mls @ 115 mls/hr 06/22/21 20:00 Chloride IV 06/25/21 21:59 Q24H NEL Loratadine 10 mg 06/21/21 09:00 06/22/21 08:41 Loratadine 10 Mg Tablet PO 10 mg DAILY NEL Administration Melatonin 6 mg 06/20/21 14:35 Melatonin 3 Mg Tablet PO BEDTIME PRN Insomnia Montelukast Sodium 10 mg 06/20/21 21:00 06/21/21 20:57 Montelukast Sodium 10 Mg Tablet PO 10 mg BEDTIME NEL Administration Pharmacy Consult 1 each 06/20/21 11:57 Consult Rx Perform Med Rec MISCELLANE ONCE PRN Consult order Sodium Chloride 3 ml 06/20/21 16:00 06/22/21 08:41 0.9 % Sodium Chloride Flush 3 Ml Syringe IVFLUSH 3 ml QSHIFT NEL Administration Labs CBC & Chem 7: 06/22/21 08:15 06/20/21 10:27 Labs: crp 1.8 ddimer <200 AST 45 ALT 67 Microbiology Microbiology Results: Microbiology 06/20/21 10:32 Blood Culture - Preliminary Blood - Venous No growth after 48 hours. 06/20/21 10:27 Blood Culture - Preliminary Blood - Venous No growth after 48 hours. Assessment and Plan (1) Acute respiratory failure with hypoxia: Status: Acute (2) Hypoxia: Status: Acute (3) Asthma: Status: Acute Assessment and Plan: 31 year male with asthma here with acute hypoxic respiratory failure due to viral pneumonia associated with covid-19, Transaminitis--LFTs trending down, worsening hypoxia and increasing O2 requirement, yet does not seem to be in distress, CRP is slightly high, DDimer <200 Plan: Continue Dexamethasone, Empiric Doxy, O2 goal of O2> 91, cough meds, tyelenol for fever, ID recommend Remdesevir D2. Lovenox for DVT prophylaxis. Albuterol for asthma. Close monitoring and if not able to maintain O2 will need escalation of care to ICU Quality Stroke Does the patient have a stroke diagnosis?: No VTE Prior VTE?: No VTE Risk Level:: Medical - moderate - high VTE Device Contraindication: N/A - Device Ordered VTE Drug Contraindication: N/A - Med Ordered
[2021-06-22 15:21] VITALS: BP 120/69; PULSE 90; RESP 20; TEMP 36.1; O2SAT 91
[2021-06-22] MEDS: Enoxaparin Sodium 40 MG/0.4 ML SYRINGE SUBCUT (16:01)
[2021-06-22 19:18] VITALS: BP 132/90; PULSE 105; RESP 20; TEMP 36.1; O2SAT 90
[2021-06-22] MEDS: Remdesivir 100 MG in 0.9 % Sodium Chloride 230 ML 115 MG IV (20:24)
[2021-06-22] MEDS: Montelukast Sodium 10 MG TABLET PO (20:24)
[2021-06-23] VITALS: BP 135/74; PULSE 80; RESP 20; TEMP 36.6; O2SAT 92
[2021-06-23] MEDS: 0.9 % Sodium Chloride Flush 3 ML SYRINGE IVFLUSH ×3 (00:36→16:32)
[2021-06-23] MEDS: Doxycycline Hyclate 100 MG in 0.9 % Sodium Chloride 250 ML 166.67 MG IV ×2 (02:21→14:37)
[2021-06-23 04:00] VITALS: BP 108/73; PULSE 83; RESP 20; TEMP 36.3; O2SAT 92
[2021-06-23 08:00] VITALS: BP 117/78; PULSE 82; RESP 21; TEMP 36.4; O2SAT 92
--- NOTE | 2021-06-23 08:58 | HO.PM.IMPN ---
Subjective Subjective Date of Service: 06/23/21 Interval History: F/u on acute hypoxic respiratory failure due to COVID-19. Seemed to be better today, oxygenation has improved he has no respiratory distress. Review of Systems Gen: no fever Resp: + sob, + cough Physical Exam Vital Signs: Vital Signs: Last Vital Signs Temp 97.5 F 06/23/21 08:00 Pulse 82 06/23/21 08:00 Resp 21 H 06/23/21 08:00 BP 117/78 06/23/21 08:00 Pulse Ox 92 06/23/21 08:00 Body Mass Index 30.9 General: AO X 3, no acute distress Resp: normal brething pattern, talking in full sentences, no accessory muslce use CVS:RRR GI: +BS, NT, no distention Skin: No rash Neuro:? motor grossly intact Psych: appropriate affect Objective Data Current Medications Generic Name Dose Route Start Last Admin Trade Name Freq PRN Reason Stop Dose Admin Acetaminophen 650 mg 06/20/21 14:35 06/21/21 22:24 Acetaminophen 325 Mg Tablet PO 650 mg Q6H PRN Administration Pain, Mild (Pain Scale 1-3) Albuterol Sulfate 2.5 mg 06/20/21 14:38 Albuterol Sulfate (0.083%) 2.5 Mg/3 Ml Vial.Neb INHALE Q6H PRN wheezing Dexamethasone Sodium Phosphate 6 mg 06/21/21 16:55 06/22/21 08:41 Dexamethasone Sod Phosphate 4 Mg/Ml Vial IVPUSH 6 mg DAILY NEL Administration Enoxaparin Sodium 40 mg 06/20/21 15:00 06/22/21 16:01 Enoxaparin Sodium 40 Mg/0.4 Ml Syringe SUBCUT 40 mg Q24H NEL Administration Fluticasone Propionate 2 spray 06/21/21 09:00 06/22/21 08:41 Fluticasone Propionate Nasal 16 Gm [place] NOSTRIL-B 2 spray DAILY NEL Administration Guaifenesin 5 ml 06/22/21 12:32 06/22/21 13:13 Guaifenesin 100 Mg/5 Ml Liquid PO 5 ml Q6H PRN Administration Cough Doxycycline Hyclate 100 mg/ 250 mls @ 166.67 mls/hr 06/20/21 15:00 06/23/21 03:57 Sodium Chloride IV Infused Q12H NEL Infusion Remdesivir 100 mg/ Sodium 230 mls @ 115 mls/hr 06/22/21 20:00 06/22/21 22:52 Chloride IV 06/25/21 21:59 Infused Q24H NEL Infusion Loratadine 10 mg 06/21/21 09:00 06/22/21 08:41 Loratadine 10 Mg Tablet PO 10 mg DAILY NEL Administration Melatonin 6 mg 06/20/21 14:35 Melatonin 3 Mg Tablet PO BEDTIME PRN Insomnia Montelukast Sodium 10 mg 06/20/21 21:00 06/22/21 20:24 Montelukast Sodium 10 Mg Tablet PO 10 mg BEDTIME NEL Administration Pharmacy Consult 1 each 06/20/21 11:57 Consult Rx Perform Med Rec MISCELLANE ONCE PRN Consult order Sodium Chloride 3 ml 06/20/21 16:00 06/23/21 00:36 0.9 % Sodium Chloride Flush 3 Ml Syringe IVFLUSH 3 ml QSHIFT NEL Administration Labs CBC & Chem 7: 06/22/21 08:15 06/20/21 10:27 Labs: Laboratory Results - last 24 hr 06/22/21 06/22/21 06/22/21 08:14 08:15 08:15 MCV 86.8 MCH 28.7 MCHC 33.0 RDW 12.3 Plt Count 199 MPV 9.7 Absolute Nucleated RBC 0.000 Nucleated RBC % (auto) 0.0 D-Dimer < 200 Total Bilirubin 0.6 Direct Bilirubin 0.3 AST 45 H ALT 67 H Alkaline Phosphatase 66 C-Reactive Protein 1.82 H Total Protein 6.0 L Albumin 3.7 Microbiology Microbiology Results: Microbiology 06/20/21 10:32 Blood Culture - Preliminary Blood - Venous No growth after 48 hours. 06/20/21 10:27 Blood Culture - Preliminary Blood - Venous No growth after 48 hours. Assessment and Plan (1) Acute respiratory failure with hypoxia: Status: Acute (2) Hypoxia: Status: Acute (3) Asthma: Status: Acute Assessment and Plan: 31 year male with asthma here with acute hypoxic respiratory failure due to viral pneumonia associated with covid-19, Transaminitis--LFTs trending down, worsening hypoxia and increasing O2 requirement, yet does not seem to be in distress, CRP is slightly high, DDimer <200 Plan: Continue Dexamethasone D4, Empiric Doxy 4/7, O2 goal of O2> 91, cough meds, tyelenol for fever, ID recommend Remdesevir D3/5. Lovenox for DVT prophylaxis. Albuterol for asthma. Close monitoring and if not able to maintain O2 will need escalation of care to ICU--overall clinical picture is better today than yesterday. Updated mother over the phone Quality Stroke Does the patient have a stroke diagnosis?: No VTE Prior VTE?: No VTE Risk Level:: Medical - moderate - high VTE Device Contraindication: N/A - Device Ordered VTE Drug Contraindication: N/A - Med Ordered
[2021-06-23] MEDS: Loratadine 10 MG TABLET PO (09:45)
[2021-06-23] MEDS: dexAMETHasone sod phosphate 4 MG/ML VIAL 6 MG IVPUSH (09:45)
[2021-06-23] MEDS: Fluticasone Propionate Nasal 16 GM SPRAY 2 SPRAY NOSTRIL-B (09:46)
[2021-06-23 12:00] VITALS: BP 127/77; PULSE 89; RESP 30; TEMP 36.1; O2SAT 90
[2021-06-23] MEDS: Enoxaparin Sodium 40 MG/0.4 ML SYRINGE SUBCUT (14:38)
[2021-06-23 15:13] VITALS: BP 119/72; PULSE 85; RESP 19; TEMP 36.5; O2SAT 91
[2021-06-23 19:08] VITALS: BP 123/74; PULSE 76; RESP 18; TEMP 36.4; O2SAT 93
[2021-06-23] MEDS: Montelukast Sodium 10 MG TABLET PO (20:21)
[2021-06-23] MEDS: Remdesivir 100 MG in 0.9 % Sodium Chloride 230 ML 115 MG IV (20:21)
[2021-06-24] VITALS (8 sets, daily range): BP systolic 97–139; BP diastolic 60–80; PULSE 69–88; RESP 18–20; TEMP 36.1–36.7; O2SAT 90–96
[2021-06-24] MEDS: 0.9 % Sodium Chloride Flush 3 ML SYRINGE IVFLUSH ×4 (00:32→20:59)
[2021-06-24] MEDS: Doxycycline Hyclate 100 MG in 0.9 % Sodium Chloride 250 ML 166.67 MG IV ×2 (05:13→16:09)
[2021-06-24] MEDS: dexAMETHasone sod phosphate 4 MG/ML VIAL 6 MG IVPUSH (07:11)
[2021-06-24] MEDS: Loratadine 10 MG TABLET PO (07:11)
[2021-06-24] MEDS: Fluticasone Propionate Nasal 16 GM SPRAY 2 SPRAY NOSTRIL-B (07:11)
[2021-06-24 08:24] LABS: Hematocrit 46.8 % (42-52); Hemoglobin 15.4 g/dl (14.0-18.0); Mean Corpuscular HGB Conc 32.9 g/dl (31.0-36.0); Mean Corpuscular Hemoglobin 28.4 pg (27.0-33.0); Mean Corpuscular Volume 86.2 fL (80-98); Mean Platelet Volume 10.2 fL (9.4-12.4); Platelet Count 211 X10*3/uL (160-400); Red Blood Count 5.43 X10*6/uL (4.60-5.80); Red Cell Distribution Width 12.5 % (11.0-16.0); White Blood Count 8.9 X10*3/uL (4.8-10.8)
[2021-06-24 08:36] LABS: D Dimer < 200 NG/ML
[2021-06-24 08:41] LABS: Alanine Aminotransferase 72 U/L (0-40); Albumin Level 3.8 g/dL (3.5-5.0); Alkaline Phosphatase 64 U/L (39-117); Aspartate Amino Transferase 33 U/L (5-37); Bilirubin Direct 0.2 mg/dL (0.0-0.5); Bilirubin Total 0.5 mg/dL (0.0-1.0); Total Protein 6.1 g/dL (6.5-8.0)
[2021-06-24 08:43] LABS: Anion Gap 12 (12-20); Blood Urea Nitrogen 16 mg/dL (9-16); Calcium 8.9 mg/dL (8.4-10.2); Carbon Dioxide 21 mmol/L (22-29); Chloride 111 mmol/L (96-108); Creatinine Clr Calc Pharmacy 193.2; Estimated Glomerular Filt Rate > 60; Glucose Random 101 mg/dL (60-115); Sodium 140 mmol/L (135-145)
--- NOTE | 2021-06-24 08:51 | P.PNIM_ITS ---
Subjective Subjective Date of Service: 06/24/21 Interval History: F/u on acute hypoxic respiratory failure due to COVID-19.? He is better, oxygenation is better, I checked O2 while at bedside and sating 93 to 95 and overll look and feel more comfortable. Review of Systems no fever +sob +cough overall feeling better Physical Exam Vital Signs: Vital Signs: Last Vital Signs Temp 97.8 F 06/24/21 07:15 Pulse 69 06/24/21 07:15 Resp 18 06/24/21 07:15 BP 139/80 06/24/21 07:15 Pulse Ox 90 L 06/24/21 07:15 Body Mass Index 30.9 General: AO X 3, no acute distress Resp: normal brething pattern, talking in full sentences, no accessory muslce use CVS:RRR GI: +BS, NT, no distention Skin: No rash Neuro:? motor grossly intact Psych: appropriate affect Objective Data Active Medications Acetaminophen (Acetaminophen 325 Mg Tablet) 650 mg PO Q6H PRN PRN Reason: Pain, Mild (Pain Scale 1-3) Last Admin: 06/21/21 22:24 Dose: 650 mg Documented by: PILAR Albuterol Sulfate (Albuterol Sulfate (0.083%) 2.5 Mg/3 Ml Vial.Neb) 2.5 mg INH JEANETTE Q6H PRN PRN Reason: wheezing Dexamethasone Sodium Phosphate (Dexamethasone Sod Phosphate 4 Mg/Ml Vial) 6 mg IVPUSH DAILY [facility] Last Admin: 06/24/21 07:11 Dose: 6 mg Documented by: LOBITO Enoxaparin Sodium (Enoxaparin Sodium 40 Mg/0.4 Ml Syringe) 40 mg SUBCUT Q24H SC H Last Admin: 06/23/21 14:38 Dose: 40 mg Documented by: LOBITO Fluticasone Propionate (Fluticasone Propionate Nasal 16 Gm [place]) 2 spray NOSTRIL-B DAILY [facility] Last Admin: 06/24/21 07:11 Dose: 2 spray Documented by: LOBITO Guaifenesin (Guaifenesin 100 Mg/5 Ml Liquid) 5 ml PO Q6H PRN PRN Reason: Cough Last Admin: 06/22/21 13:13 Dose: 5 ml Documented by: BRITTNEY Doxycycline Hyclate 100 mg/ (Sodium Chloride) 250 mls @ 166.67 mls/hr IV Q12H [facility] Last Infusion: 06/24/21 07:11 Dose: 0 mls/hr Documented by: LOBITO Remdesivir 100 mg/ Sodium (Chloride) 230 mls @ 115 mls/hr IV Q24H [facility] Stop: 06/25/21 21:59 Last Infusion: 06/23/21 22:27 Dose: 0 mls/hr Documented by: RYLAN Loratadine (Loratadine 10 Mg Tablet) 10 mg PO DAILY [facility] Last Admin: 06/24/21 07:11 Dose: 10 mg Documented by: LOBITO Melatonin (Melatonin 3 Mg Tablet) 6 mg PO BEDTIME PRN PRN Reason: Insomnia Montelukast Sodium (Montelukast Sodium 10 Mg Tablet) 10 mg PO BEDTIME [facility] Last Admin: 06/23/21 20:21 Dose: 10 mg Documented by: RYLAN Pharmacy Consult (Consult Rx Perform Med Rec) 1 each MISCELLANE ONCE PRN PRN Reason: Consult order Sodium Chloride (0.9 % Sodium Chloride Flush 3 Ml Syringe) 3 ml IVFLUSH QSHIFT [facility] Last Admin: 06/24/21 07:11 Dose: 3 ml Documented by: LOBITO Labs CBC & Chem 7: 06/24/21 08:15 06/24/21 08:15 Labs: Laboratory Results - last 24 hr 06/24/21 06/24/21 06/24/21 08:15 08:15 08:15 MCV MCH MCHC RDW Plt Count MPV Absolute Nucleated RBC Nucleated RBC % (auto) D-Dimer < 200 Anion Gap 12 Estim Creat Clear Calc 193.2 Estimated GFR > 60 Random Glucose 101 Calcium 8.9 D Total Bilirubin 0.5 Direct Bilirubin 0.2 AST 33 ALT 72 H Alkaline Phosphatase 64 C-Reactive Protein Total Protein 6.1 L Albumin 3.8 06/24/21 06/24/21 08:15 08:15 MCV 86.2 MCH 28.4 MCHC 32.9 RDW 12.5 Plt Count 211 MPV 10.2 Absolute Nucleated RBC 0.000 Nucleated RBC % (auto) 0.0 D-Dimer Anion Gap Estim Creat Clear Calc Estimated GFR Random Glucose Calcium Total Bilirubin Direct Bilirubin AST ALT Alkaline Phosphatase C-Reactive Protein 0.50 Total Protein Albumin Assessment and Plan (1) Acute respiratory failure with hypoxia: Status: Acute (2) Hypoxia: Status: Acute (3) Asthma: Status: Acute Assessment and Plan: 31 year male with asthma here with acute hypoxic respiratory failure due to viral pneumonia associated with covid-19, Transaminitis--LFTs trending down, worsening hypoxia and increasing O2 requirement, yet does not seem to be in distress, CRP is slightly high, DDimer <200 Plan: Continue Dexamethasone D5, Empiric Doxy 02/25, O2 goal of O2> 91, cough m eds, tyelenol for fever, ID recommend Remdesevir D4/5. Lovenox for DVT prophylaxis. Albuterol for asthma. Close monitoring and if not able to maintain O2 will need escalation of care to ICU--overall clinical picture is better today than yesterday. Updated mother over the phone..Overall trending in the right direction. Incentive spirometry Quality Stroke Does the patient have a stroke diagnosis?: No VTE Prior VTE?: No VTE Risk Level:: Medical - moderate - high VTE Device Contraindication: N/A - Device Ordered VTE Drug Contraindication: N/A - Med Ordered
--- NOTE | 2021-06-24 12:23 | MHC.CM.PN ---
Male 31 DX Covid. He lives with Family. LOS r/t the pts need for oxygen at 12L. DP home with family support and transportation. CM will follow.
[2021-06-24] MEDS: Remdesivir 100 MG in 0.9 % Sodium Chloride 230 ML 115 MG IV (20:59)
[2021-06-24] MEDS: Montelukast Sodium 10 MG TABLET PO (20:59)
[2021-06-25] VITALS (8 sets, daily range): BP systolic 111–138; BP diastolic 65–89; PULSE 72–98; RESP 18–20; TEMP 36–36.9; O2SAT 92–95
[2021-06-25] MEDS: Doxycycline Hyclate 100 MG in 0.9 % Sodium Chloride 250 ML 166.67 MG IV ×2 (02:00→14:08)
[2021-06-25] MEDS: dexAMETHasone sod phosphate 4 MG/ML VIAL 6 MG IVPUSH (08:35)
[2021-06-25] MEDS: 0.9 % Sodium Chloride Flush 3 ML SYRINGE IVFLUSH ×3 (08:35→19:54)
[2021-06-25] MEDS: Fluticasone Propionate Nasal 16 GM SPRAY 2 SPRAY NOSTRIL-B (08:36)
[2021-06-25] MEDS: Loratadine 10 MG TABLET PO (08:36)
[2021-06-25] MEDS: Enoxaparin Sodium 40 MG/0.4 ML SYRINGE SUBCUT (14:07)
--- NOTE | 2021-06-25 15:20 | HO.PM.IMPN ---
Subjective Subjective Date of Service: 06/25/21 Interval History: covid, hypoxia f/u, better, on room air at 94% Review of Systems Gen: no fever Resp: no sob, no cough CV: no chest, no RANDOLPH, no leg edema GI: No n/v, no abd pain Neuro: No confusion Physical Exam Vital Signs: Vital Signs: Last Vital Signs Temp 98.0 F 06/25/21 15:17 Pulse 75 06/25/21 15:17 Resp 20 06/25/21 15:17 BP 111/71 06/25/21 15:17 Pulse Ox 94 06/25/21 15:17 Body Mass Index 30.9 General: AO X 3, no acute distress Resp: CTA bilateral CVS: S1,S2,RRR GI: +BS, NT, no distention Skin: No rash Neuro: motor grossly intact Psych: appropriate affect Objective Data Active Medications Acetaminophen (Acetaminophen 325 Mg Tablet) 650 mg PO Q6H PRN PRN Reason: Pain, Mild (Pain Scale 1-3) Last Admin: 06/21/21 22:24 Dose: 650 mg Documented by: PILAR Albuterol Sulfate (Albuterol Sulfate (0.083%) 2.5 Mg/3 Ml Vial.Neb) 2.5 mg INHALE Q6H PRN PRN Reason: wheezing Dexamethasone Sodium Phosphate (Dexamethasone Sod Phosphate 4 Mg/Ml Vial) 6 mg IVPUSH DAILY [facility] Last Admin: 06/25/21 08:35 Dose: 6 mg Documented by: LOBITO Enoxaparin Sodium (Enoxaparin Sodium 40 Mg/0.4 Ml Syringe) 40 mg SUBCUT Q24H [facility] Last Admin: 06/25/21 14:07 Dose: 40 mg Documented by: LOBITO Fluticasone Propionate (Fluticasone Propionate Nasal 16 Gm [place]) 2 spray NOSTRIL-B DAILY [facility] Last Admin: 06/25/21 08:36 Dose: 2 spray Documented by: LOBITO Guaifenesin (Guaifenesin 100 Mg/5 Ml Liquid) 5 ml PO Q6H PRN PRN Reason: Cough Last Admin: 06/22/21 13:13 Dose: 5 ml Documented by: BRITTNEY Doxycycline Hyclate 100 mg/ (Sodium Chloride) 250 mls @ 166.67 mls/hr IV Q12H [facility] Last Admin: 06/25/21 14:08 Dose: 166.67 mls/hr Documented by: LOBITO Remdesivir 100 mg/ Sodium (Chloride) 230 mls @ 115 mls/hr IV Q24H [facility] Stop: 06/25/21 21:59 Last Infusion: 06/24/21 23:09 Dose: 0 mls/hr Documented by: ESTHER Loratadine (Loratadine 10 Mg Tablet) 10 mg PO DAILY [facility] Last Admin: 06/25/21 08:36 Dose: 10 mg Documented by: LOBITO Melatonin (Melatonin 3 Mg Tablet) 6 mg PO BEDTIME PRN PRN Reason: Insomnia Montelukast Sodium (Montelukast Sodium 10 Mg Tablet) 10 mg PO BEDTIME [facility] Last Admin: 06/24/21 20:59 Dose: 10 mg Documented by: ESTHER Pharmacy Consult (Consult Rx Perform Med Rec) 1 each MISCELLANE ONCE PRN PRN Reason: Consult order Sodium Chloride (0.9 % Sodium Chloride Flush 3 Ml Syringe) 3 ml IVFLUSH QSHIFT [facility] Last Admin: 06/25/21 08:35 Dose: 3 ml Documented by: LOBITO Labs CBC & Chem 7: 06/24/21 08:15 06/24/21 08:15 Microbiology Microbiology Results: Microbiology 06/20/21 10:32 Blood Culture - Final Blood - Venous No growth after 5 days. 06/20/21 10:27 Blood Culture - Final Blood - Venous No growth after 5 days. Assessment and Plan (1) Acute respiratory failure with hypoxia: Status: Acute (2) Hypoxia: Status: Acute (3) Asthma: Status: Acute Assessment and Plan: 31 year male with asthma here with acute hypoxic respiratory failure due to viral pneumonia associated with covid-19, Transaminitis--LFTs trending down, worsening hypoxia and increasing O2 requirement, yet does not seem to be in distress, CRP is slightly high, DDimer <200--His doing well, off oxygen and maintain O2, no distress Plan: Continue Dexamethasone D6/10, Empiric Doxy 6/7, O2 goal of O2> 91, cough meds, tyelenol for fever, ID recommend Remdesevir D5/5. Lovenox for DVT prophylaxis. Albuterol for asthma. Continue monitoring Off oxygen and likely DC tomorrow. Mother updated over the phone. Quality Stroke Does the patient have a stroke diagnosis?: No VTE Prior VTE?: No VTE Risk Level:: Medical - moderate - high VTE Device Contraindication: N/A - Device Ordered VTE Drug Contraindication: N/A - Med Ordered
--- NOTE | 2021-06-25 18:43 | PC.NURSE ---
Patient weaned off of oxygen completely today, 94% at rest and 93% with activity. Patient had large bowel movement following consumption of prune juice. Patient OOB to recliner for majority of the bed. 100% of all meals eaten. Will pass to oncoming nurse.
[2021-06-25] MEDS: Montelukast Sodium 10 MG TABLET PO (19:52)
[2021-06-25] MEDS: Remdesivir 100 MG in 0.9 % Sodium Chloride 230 ML 115 MG IV (19:54)
[2021-06-26] MEDS: Doxycycline Hyclate 100 MG in 0.9 % Sodium Chloride 250 ML 166.67 MG IV (02:28)
[2021-06-26 03:13] VITALS: BP 126/76; PULSE 72; RESP 20; TEMP 36.6; O2SAT 92
[2021-06-26 08:00] VITALS: BP 119/86; PULSE 79; RESP 20; TEMP 36.2; O2SAT 92
[2021-06-26] MEDS: dexAMETHasone sod phosphate 4 MG/ML VIAL 6 MG IVPUSH (08:06)
[2021-06-26] MEDS: Fluticasone Propionate Nasal 16 GM SPRAY 2 SPRAY NOSTRIL-B (08:06)
[2021-06-26] MEDS: 0.9 % Sodium Chloride Flush 3 ML SYRINGE IVFLUSH (08:06)
[2021-06-26] MEDS: Loratadine 10 MG TABLET PO (08:06)
--- NOTE | 2021-06-26 09:16 | PM.DS ---
DS: Providers Provider Date of Service: 06/26/21 Date of admission: 06/20/21 14:36 Primary care physician: Christian Gordon MD Consults: 06/21/21 12:54 Consult to Infectious Diseases Routine Consulting Provider: Sarita Wilson Reason for consultation: covid pna Has provider been notified: No DS: Diagnosis Discharge Diagnosis (1) Acute respiratory failure with hypoxia: Status: Acute (2) Hypoxia: Status: Acute (3) Asthma: Status: Acute DS: Summary Hospital Course Hospital Course: Chief Complaint: shortness of breath 31-year-old male with a developmental delay, history of asthma, who presents to the emergency room with a shortness of breath. He tested positive for covid on June 18 along with multiple family memebers? and has been having symptoms of URI and sob since Jun 14 and seem to have gotten worse today and hence brought to the ED. His noted to be hypoxic with O2 892 on room. LFTs are high, CRP 0.81 LDH 292 and covid positive. Oxygen saturation is better with O2. ED:given breathing treatment and IV dexamethasone. CXR shows covid pattern pneumonia.? Hospital course: Patient was admitted to the hospital due to acute hypoxic respiratory failure related to covid 19 pneumonia and require oxygen, further management included Decadron, 5 days of Remdesevir under direction of infectiou disease and empiric Doxycyline for 7 days. Gradually, he has been weaned of oxygen and has been on room air the last 24 hours and saturating 92 to 94 %, he is breathing easy and feels comfortable and desires to go home. He is been discharged on hospital day 7 and will complete 10 day course of decadron, may continue use of albuterol for asthma. Time Spent with Patient Time attestation: Total time spent providing and/or coordinating discharge services: Discharge coordination time: Greater than 30 minutes Quality: Stroke Does the patient have a stroke diagnosis?: No Physical Exam Vital Signs: Vital Signs: Last Vital Signs Temp 97.2 F 06/26/21 08:00 Pulse 79 06/26/21 08:00 Resp 20 06/26/21 08:00 BP 119/86 06/26/21 08:00 Pulse Ox 92 06/26/21 08:00 Body Mass Index 30.9 General: AO X 3, no acute distress Resp: CTA bilateral CVS: S1,S2,RRR GI: +BS, NT, no distention Skin: No rash Neuro: motor grossly intact Psych: appropriate affect Discharge Plan Discharge Anticipated Discharge Date/Time: 06/26/21 09:21 Patient Disposition: Home, Self-Care Discharge Diagnosis: Covid pneumonia with hypoxia Referrals: Christian Gordon MD [Primary Care Provider] - 1 Week Discharge Medications: New dexamethasone [Decadron] 6 mg tablet 6 mg PO DAILY Qty: 3 RF: 0 Continued albuterol sulfate 2.5 mg /3 mL (0.083 %) solution for nebulization 1 vial inhalation Q6H PRN (Reason: wheezing) RF: 0 triamcinolone acetonide [Nasacort] 55 mcg Aerosol,[place] 2 spray INTRANASAL DAILY RF: 0 montelukast [Singulair] 10 mg Tablet 10 mg PO BEDTIME RF: 0 loratadine [Claritin] 10 mg Tablet 10 mg PO DAILY RF: 0 Discharge Orders: Discharge Order (Routine); Ordered 06/26/21 Ordered By: Miguel Angel Watson Diet: advance to usual diet Activity on Discharge: As tolerated Stand Alone Forms: Patient Portal Discharge page Care Plan Goals: Full recovery from covid 19 pneumonia and hypoxia Health Concerns: covid 19, asthma Plan of Treatment: Take Decadron as recommended Use inhalers for asthma follow up with your Doctor in a week, call for appointment Remain in isolation for next 72 hours and fever, use mask when in public Assessment: As above
--- NOTE | 2021-06-26 10:04 | MHC.CM.PN ---
PT CLEARED FOR DC HOME TODAY WITH NO SERVICES FAMILY TO TRANSPORT
== END 2021-06-26 11:15 | disposition home or self-care (01) | DRG 177 ==
LOC: HO.ED 13:24 → HO.EDOVER 14:46 → HO.IMC 15:33
PROVIDERS: Nurse Practitioner Family; Admitting Provider Internal Medicine; Emergency Provider Emergency Medicine; PCP Pediatrics; Visit Provider Internal Medicine
DX: U07.1 COVID-19 (principal); J12.82 Pneumonia due to coronavirus disease 2019; J96.01 Acute respiratory failure with hypoxia; R62.50 Unspecified lack of expected normal physiological development in childhood; Z88.5 Allergy status to narcotic agent; Z79.899 Other long term (current) drug therapy
CPT/HCPCS: 36415; 71045; 80048; 80076; 82728; 83605; 83615; 83735; 84145; 85025; 85027; 85379; 85610; 86140; 87040; 87635; 93005; 94640; 96361; 96365; 96366; 96375; 99285; J1100; J1650; J2543; J3475; J3490